=== PATIENT | male | born 1990 | race Caucasian/White ===

== ENCOUNTER → 2022-04-24 | Outpatient (CLI) | payer BC, OTHER ==
[~2022-04-24] MED LIST: DICY20TA33 PO; ONDA4TAB11 PO
--- NOTE | 2022-04-24 18:59 | Diagnostic Imaging Report ---
EXAMINATION: Magnetic resonance imaging of the right ankle without contrast. DATE: April 24, 2022. COMPARISON: None. HISTORY: 31-year-old male, right ankle pain. History of prior injury. TECHNIQUE: Magnetic Resonance Imaging sequences were performed of the ankle without contrast. FINDINGS: TENDONS AND LIGAMENTS: The Achilles tendon is unremarkable. There is a small amount of fluid in the tendon sheaths of tibialis posterior and flexor digitorum longus which may reflect low-level tenosynovitis. Recommend correlation for referrable symptoms. Additional evaluation of the posterior flexor tendons is unremarkable. The peroneal tendons - peroneus longus and peroneus brevis - are intact. The anterior extensor tendons - tibialis anterior, extensor hallucis longus and extensor digitorum longus tendons - are intact. The anterior and posterior syndesmotic ligaments are intact. The anterior talofibular, posterior talofibular, calcaneofibular and deltoid ligaments are intact. The plantar fascia is intact. JOINTS: The ankle mortise is intact. The subtalar and visualized joints of the mid-foot are intact. BONE: The bones all have normal configuration. There is very low level edema in the calcaneus near the anterior aspect of the sinus tarsi at he attachment sites of the roots of the inferior extensor retinaculum. There is also low-level soft tissue edema at this location. There is no definite discrete tear of the ligaments within the sinus tarsi. There is preservation of at least normal fat signal within the sinus tarsi. The talar dome is intact. BURSAE AND SOFT TISSUES: As mentioned above, there is soft tissue and intramuscular edema near the anterior and lateral margin of the sinus tarsi without identified focal fluid collection. Additional bursal and soft tissue assessment is unremarkable. IMPRESSION: 1. Low level edema in the calcaneus at the anterior aspect of the sinus tarsi at the attachment sites of the roots of the inferior extensor retinaculum which may reflect low-level bone contusion or stress or mechanically related edema. 2. Soft tissue edema and intramuscular edema near the above-mentioned bone marrow process which may reflect a low-grade muscle strain or contusion. 3. No discretely identified tear of the ligament within the sinus tarsi. No MRI evidence of sinus tarsi syndrome. 4. Small amount of fluid in the tendon sheaths of tibialis posterior and flexor digitorum longus which potentially may reflect tenosynovitis, if correlates clinically. Negative for tendon tear. 6. Unremarkable joint evaluation. Dictated on workstation # [id number]
== END ==
LOC: RAD 14:10
PROVIDERS: ATTEND Podiatrist Foot & Ankle Surgery
DX: M25.571 Pain in right ankle and joints of right foot (principal); M72.2 Plantar fascial fibromatosis
CPT/HCPCS: 73721